=== PATIENT | male | born 1990 | race Hispanic/Latino ===

== ENCOUNTER 2017-06-27 10:15 | Emergency (ER) | payer BC ==
[2017-06-27 11:23] VITALS: RESP 18; TEMP 97.9
--- NOTE | 2017-06-27 11:39 | ED PDOC ---
Arrival/HPI - General Chief Complaint: Trauma Time Seen by Provider: 06/27/17 11:34 Historian: Patient - History of Present Illness Narrative History of Present Illness (Text): 06/27/17 11:36 26-year-old male presents today with right wrist and left shoulder pain status post fall. Patient states he tripped down the stairs but was able to stop his fall by grabbing onto the railings bilaterally. Patient states at that time he was feeling fine. He did not actually fall to the ground. Patient states as he continued to get ready to started to develop pain to the lateral aspect of the right wrist as well as a pinching pain to the anterior aspect of the left shoulder with range of motion. No medications have been taken for pain at home. Patient denies hitting his head. Denies dizziness or weakness. Denies chest pain or shortness of breath. No other complaints Past Medical History - Provider Review Nursing Documentation Reviewed: Yes - Travel History Have you recently traveled outside [place] w/in the past 3 mons?: No - Tetanus Immunization Tetanus Immunization: Unknown - Psychiatric Hx Substance Use: No Family/Social History - Physician Review Nursing Documentation Reviewed: Yes Family/Social History: Unknown Family HX Smoking Status: Never Smoked Hx Alcohol Use: No Hx Substance Use: No Allergies/Home Meds Allergies/Adverse Reactions: Allergies No Known Allergies Allergy (Verified 06/27/17 11:16) Review of Systems - Review of Systems Constitutional: absent: Fatigue, Fevers Respiratory: absent: SOB, Cough Cardiovascular: absent: Chest Pain, Palpitations Gastrointestinal: absent: Abdominal Pain, Nausea, Vomiting Musculoskeletal: Arthralgias (right wrist, left shoulder pain s/p fall). absent : Back Pain, Neck Pain Skin: absent: Rash, Pruritis Neurological: absent: Headache, Dizziness Psychiatric: absent: Anxiety, Depression Physical Exam Vital Signs Reviewed: Yes Vital Signs Temp Pulse Resp BP Pulse Ox 06/27/17 11:22 97.9 F 61 18 121/60 96 Temperature: Afebrile Blood Pressure: Normal Pulse: Regular Respiratory Rate: Normal Appearance: Positive for: Well-Appearing, Non-Toxic, Comfortable Pain Distress: None Mental Status: Positive for: Alert and Oriented X 3 - Systems Exam Head: Present: Atraumatic Mouth: Present: Moist Mucous Membranes Neck: Present: Normal Range of Motion. No: MIDLINE TENDERNESS, Paraspinal Tenderness Respiratory/Chest: Present: Clear to Auscultation, Good Air Exchange. No: Respiratory Distress, Accessory Muscle Use Cardiovascular: Present: Regular Rate and Rhythm, Normal S1, S2. No: Murmurs Abdomen: No: Tenderness Back: Present: Normal Inspection. No: Paraspinal Tenderness Upper Extremity: Present: Normal ROM, NORMAL PULSES, Tenderness (right wrist; full rom of wrist; no snuff box tenderness; no tenderness to ulnar aspect; no edema, no erythema; no ecchymosis; right hand non tender; full rom of all fingers; opposition wnl. left shoulder; + ttp over anterior aspect of shoulder ; full rom of shoulder; sensation and distal pulses intact; cap refill <2. ), Neurovascularly Intact, Capillary Refill < 2s. No: Swelling, Erythema, Deformity Neurological: Present: GCS=15 Skin: Present: Warm, Dry, Normal Color. No: Rashes Psychiatric: Present: Alert, Oriented x 3 Medical Decision Making ED Course and Treatment: 06/27/17 11:41 Patient nontoxic well-appearing in no distress with stable vital signs X-rays of the right wrist: No fracture X-rays of the left shoulder: No fracture Patient refusing any medications for pain right velcro wrist splint applied. I discussed all results with patient advised to followup with the orthopedist for the next 2 days. Return if symptoms worsen persist or new symptoms develop i advised the patient that although the xrays show no fracture; there is still a possibility for ligamentous or tendon injury the patient must see the orthopedist for further evaluation. Patient verbalizes understanding of discharge instructions and need for immediate followup. all aspects of this case were discussed the attending of record. Impression: Wrist pain, shoulder pain Motrin every 6 hours as needed for pain Rest, ice, compression, elevation Followup with the orthopedist within the next 2 days Followup with primary care physician within the next 2 days Return if any other concerning symptoms develop - RAD Interpretation Radiology Orders: 06/27/17 11:35 SHOULDER LEFT [RAD] Stat WRIST, RIGHT 3 VIEWS [RAD] Stat Disposition/Present on Arrival - Present on Arrival Any Indicators Present on Arrival: No History of DVT/PE: No History of Uncontrolled Diabetes: No Urinary Catheter: No History of Decub. Ulcer: No History Surgical Site Infection Following: None - Disposition Have Diagnosis and Disposition been Completed?: Yes Diagnosis: Wrist pain, Shoulder pain Disposition: HOME/ ROUTINE Disposition Time: 11:42 Patient Plan: Discharge Patient Problems: Current Active Problems Problem Status Onset Shoulder pain Acute Wrist pain Acute Condition: GOOD Discharge Instructions (ExitCare): Wrist Injury (ED), Shoulder Pain (ED) Additional Instructions: Motrin every 6 hours as needed for pain Rest, ice, compression, elevation Followup with the orthopedist within the next 2 days Followup with primary care physician within the next 2 days Return if any other concerning symptoms develop Prescriptions: Ibuprofen [Motrin] 600 mg PO Q6H PRN #20 tab PRN Reason: pain/fever reduction Referrals: Dorian Ferguson III, MD [Medical Doctor] - Follow up with primary Marva Patricio MD [Staff Provider] - Follow up with primary [facility] [place] [Outside] - Follow up with primary Forms: [employer] ([place]), WORK NOTE
[2017-06-27 12:50] VITALS: BP 118/65; PULSE 64; O2SAT 98
--- NOTE | 2017-06-27 15:27 | RAD ---
PROCEDURE: Radiographs of the Left Shoulder HISTORY: pain s/p injury COMPARISON: No prior. FINDINGS: BONES: Normal. No fracture. JOINTS: Normal. Glenohumeral and acromioclavicular joints preserved. No osteoarthritis. SOFT TISSUES: Normal. OTHER FINDINGS: None. IMPRESSION: No evidence of acute fracture or dislocation.
--- NOTE | 2017-06-27 15:47 | RAD ---
PROCEDURE: Right Wrist Radiographs. HISTORY: wrist injury COMPARISON: None. FINDINGS: BONES: Bone alignment and mineralization are normal. There is no acute displaced fracture or bone destruction. JOINTS: The proximal and distal carpal rows are maintained. No dislocation. SOFT TISSUES: Normal. OTHER FINDINGS: None. IMPRESSION: No acute fracture or dislocation.
== END 2017-06-27 12:56 | disposition home or self-care (01) ==
LOC: ED 10:15
DX: M25.531 Pain in right wrist (principal); M25.512 Pain in left shoulder